=== PATIENT | male | born 1995 | race Hispanic/Latino ===

== ENCOUNTER 2023-08-07 19:25 | Emergency (ER) | payer OTHER ==
[2023-08-07] MEDS ORDERED: levETIRAcetam 500 MG (5 mL) VIAL ONE (20:02)
[2023-08-07] MEDS ORDERED: Acetaminophen 500 MG TAB ONE (20:27)
== END 2023-08-07 20:31 ==
LOC: ERS 19:25
DX: G40.909 Epilepsy, unspecified, not intractable, without status epilepticus (principal); I10 Essential (primary) hypertension
CPT/HCPCS: 96365; J1953

== ENCOUNTER 2023-09-26 21:21 | Emergency (ER) | payer OTHER ==
[2023-09-26] MEDS ORDERED: levETIRAcetam 500 MG (5 mL) VIAL ONE (22:47)
== END 2023-09-26 23:10 ==
LOC: ERS 21:21
DX: G40.409 Other generalized epilepsy and epileptic syndromes, not intractable, without status epilepticus (principal); I10 Essential (primary) hypertension; Z79.899 Other long term (current) drug therapy
CPT/HCPCS: 96374; J1953